=== PATIENT | male | born 1995 | race American Indian/Alaskan Native ===

== ENCOUNTER 2018-07-11 19:03 | Emergency (ER) | payer SELFPAY ==
[2018-07-11 21:58] VITALS: BP 130/76
--- NOTE | 2018-07-11 21:59 | Emergency Department Report ---
Chief Complaint: Eye Problems Stated Complaint: EYE PROBLEM Time Seen by Provider: 07/11/18 21:56 - HPI History of Present Illness: pt presents with erythema to the right eye that began last night did not get anything in the eye does not wear contact denies drainage, eyelash matting, crusting no sick contacts MSE screening note: Focused history performed ED Disposition for MSE Condition: Stable
== END 2018-07-12 01:45 | disposition left against medical advice (07) ==
LOC: ED 19:03
DX: H57.89 Other specified disorders of eye and adnexa (principal); Z53.21 Procedure and treatment not carried out due to patient leaving prior to being seen by health care provider